=== PATIENT | male | born 1990 | race Caucasian/White ===

== ENCOUNTER → 2019-10-24 | Outpatient (CLI) | payer OTHER ==
--- NOTE | 2019-10-25 15:02 | REP ---
LEFT RIB SERIES: Four views left ribs performed. I see no fracture or bone lesion. An accompanying PA view of the chest demonstrates no acute infiltrate, pneumothorax, or pleural effusion. Heart and mediastinum are within normal limits. IMPRESSION: Negative left rib series. Electronically Signed by Armin Hua MD 10/25/2019 11:51 P
== END ==
LOC: M LRY 16:46
PROVIDERS: ATTEND Nurse Practitioner Family
DX: R07.81 Pleurodynia (principal)

== ENCOUNTER 2021-08-02 16:24 | Emergency (ER) | payer OTHER ==
[~2021-08-02] VITALS: Ht 182.9 cm; Wt 116.1 kg
[2021-08-02] MEDS ORDERED: NORCO, ANEXSIA 5/325MG TABLET (HYDROcodone/ACETAMINOPHEN) PO ONE (17:20)
[2021-08-02] MEDS ORDERED: HYDR-3713 PO (17:36)
[2021-08-02 17:45] VITALS: BP 142/70
== END 2021-08-02 17:46 | disposition home or self-care (01) ==
LOC: M ED 16:24
DX: S62.515A Nondisplaced fracture of proximal phalanx of left thumb, initial encounter for closed fracture (principal); X50.0XXA Overexertion from strenuous movement or load, initial encounter; Y92.009 Unspecified place in unspecified non-institutional (private) residence as the place of occurrence of the external cause; Y93.9 Activity, unspecified; Y99.9 Unspecified external cause status